=== PATIENT | female | born 2000 | race Caucasian/White ===

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

== ENCOUNTER → 2020-09-26 | Outpatient (CLI) | payer SELFPAY | LOC: M LABSMTC 09:42 | PROVIDERS: ATTEND Pediatrics | DX: Z20.822 Contact with and (suspected) exposure to COVID-19 (principal) ==

== ENCOUNTER → 2020-10-14 | Outpatient (CLI) | payer OTHER ==
[2020-10-14 15:14] LABS: BASO % 0.2 % (0.0-1.0); EOS % 0.5 % (0.0-3.0); HEMATOCRIT 42.6 % (36.0-47.0); HEMOGLOBIN 13.5 g/dl (12.0-15.5); LYMPH # 2.1 10^3/uL (1.5-5.0); LYMPH % 24.3 % (24.0-44.0); MEAN CORPUSCULAR HEMOGLOBIN 26.1 pg (27.0-33.0); MEAN CORPUSCULAR HGB CONC 31.7 g/dl (32.0-36.5); MEAN CORPUSCULAR VOLUME 82.4 fl (80.0-96.0); MONO # 0.6 10^3/uL (0.0-0.8); MONO % 6.6 % (0.0-5.0); NEUTROPHILS # 5.8 10^3/uL (1.5-8.5); NEUTROPHILS % 68.2 % (36.0-66.0); PLATELET COUNT, AUTOMATED 126 10^3/uL (150-450); RED BLOOD COUNT 5.17 10^6/uL (4.00-5.40); WHITE BLOOD COUNT 8.5 10^3/uL (4.0-10.0)
[2020-10-14 15:49] LABS: ALBUMIN 4.2 GM/DL (3.2-5.2); ALT/SGPT 25 U/L (12-78); BILIRUBIN,TOTAL 1.3 MG/DL (0.2-1.0); BLOOD UREA NITROGEN 17 MG/DL (7-18); CALCIUM LEVEL 9.6 MG/DL (8.5-10.1); CARBON DIOXIDE LEVEL 29 MEQ/L (21-32); CHLORIDE LEVEL 105 MEQ/L (98-107); FREE T4 0.96 NG/DL (0.78-1.33); GLUCOSE, FASTING 87 MG/DL (70-100); POTASSIUM SERUM 4.1 MEQ/L (3.5-5.1); SODIUM LEVEL 141 MEQ/L (136-145); THYROID STIMULATING HORMONE 0.875 uIU/ML (0.463-3.98); TOTAL PROTEIN 7.3 GM/DL (6.4-8.2)
== END ==
LOC: M LAB 14:31
PROVIDERS: ATTEND Pediatrics
DX: F43.23 Adjustment disorder with mixed anxiety and depressed mood (principal)

== ENCOUNTER → 2020-12-15 | Outpatient (CLI) | payer OTHER | LOC: M LABSMTC 09:51 | PROVIDERS: ATTEND Pediatrics | DX: Z20.822 Contact with and (suspected) exposure to COVID-19 (principal) ==

== ENCOUNTER → 2020-12-15 | Outpatient (REF) | payer OTHER ==
[2020-12-15 14:28] LABS: CHLAMYDIA DNA AMPLIFICATION POSITIVE (NEGATIVE); GC DNA AMPLIFICATION NEGATIVE (NEGATIVE)
== END ==
LOC: M WUC 12:19
PROVIDERS: ATTEND Physician Assistant
DX: R30.0 Dysuria (principal)

== ENCOUNTER → 2021-01-04 | Outpatient (REF) | payer OTHER | LOC: M LAB REF 15:43 | PROVIDERS: ATTEND Physician Assistant | DX: N93.9 Abnormal uterine and vaginal bleeding, unspecified (principal); B37.3 Candidiasis of vulva and vagina; Z20.828 Contact with and (suspected) exposure to other viral communicable diseases ==

== ENCOUNTER → 2021-03-02 | Outpatient (REF) | payer OTHER | LOC: M LAB REF 16:31 | PROVIDERS: ATTEND Advanced Practice Midwife | DX: R30.0 Dysuria (principal) ==

== ENCOUNTER 2021-03-13 17:50 | Emergency (ER) | payer OTHER ==
[~2021-03-13] VITALS: Ht 170.2 cm; Wt 72.5 kg
[2021-03-13] MEDS ORDERED: CEPH25SS PO (18:08)
[2021-03-13] MEDS ORDERED: PYRI1TAB5 PO ×2 (18:08→22:55)
[2021-03-13 19:13] LABS: BASO % 0.3 % (0.0-1.0); EOS # 0.1 10^3/uL (0.0-0.5); EOS % 1.6 % (0.0-3.0); GLUCOSE, URINE (UA) MANUAL NEGATIVE (NEGATIVE); HEMATOCRIT 41.8 % (36.0-47.0); KETONE, URINE MANUAL NEGATIVE (NEGATIVE); LYMPH # 3.4 10^3/uL (1.5-5.0); LYMPH % 43.6 % (24.0-44.0); MEAN CORPUSCULAR HGB CONC 31.1 g/dl (32.0-36.5); MEAN CORPUSCULAR VOLUME 83.6 fl (80.0-96.0); MONO # 0.7 10^3/uL (0.0-0.8); MONO % 8.6 % (2.0-8.0); NEUTROPHILS # 3.5 10^3/uL (1.5-8.5); NEUTROPHILS % 45.4 % (36.0-66.0); PLATELET COUNT, AUTOMATED 145 10^3/uL (150-450); WHITE BLOOD COUNT 7.7 10^3/uL (4.0-10.0)
[2021-03-13 19:14] LABS: BILIRUBIN, URINE MANUAL OBSCURED (NEGATIVE); UROBILINOGEN, URINE MANUAL OBSCURED mg/dl (NORMAL)
[2021-03-13 19:24] LABS: BACTERIA, URINE SMALL AMOUNT; RBC, URINE NONE SEEN /hpf (0-3); SQUAMOUS EPITHELIAL CELL URINE SMALL AMOUNT /hpf (SMALL AMT)
[2021-03-13 19:25] LABS: HYALINE CAST, URINE NONE SEEN /lpf (0-1); MUCUS, URINE SMALL AMOUNT (NEGATIVE)
[2021-03-13 19:43] LABS: HCG, SERUM QUALITATIVE NEGATIVE (NEGATIVE)
[2021-03-13 19:44] LABS: ALBUMIN 4.1 GM/DL (3.2-5.2); ALT/SGPT 16 U/L (12-78); BILIRUBIN,DIRECT 0.3 MG/DL (0.0-0.2); BILIRUBIN,TOTAL 1.2 MG/DL (0.2-1.0); BLOOD UREA NITROGEN 15 MG/DL (7-18); CARBON DIOXIDE LEVEL 28 MEQ/L (21-32); CHLORIDE LEVEL 110 MEQ/L (98-107); CREATININE FOR GFR 0.73 MG/DL (0.55-1.30); GLUCOSE, FASTING 76 MG/DL (70-100); LIPASE 86 U/L (73-393); POTASSIUM SERUM 3.8 MEQ/L (3.5-5.1); SODIUM LEVEL 142 MEQ/L (136-145); TOTAL PROTEIN 7.2 GM/DL (6.4-8.2)
--- NOTE | 2021-03-13 22:18 | REPVR ---
PROCEDURE INFORMATION: Exam: US Retroperitoneal Limited, Kidneys Exam date and time: 03/13/2021 9:43 PM Age: 20 years old Clinical indication: Abdominal pain; Flank; Left; Additional info: Left flank pain, dysuria, hematuria, polyuria, abx no help TECHNIQUE: Imaging protocol: Real-time ultrasound of the retroperitoneum with image documentation. Examination was focused on the kidneys. COMPARISON: ABD COMPLETE US 09/08/2017 8:26 AM FINDINGS: Right kidney: Right kidney measures 11.6 cm in length. Renal parenchymal echotexture and cortical thickness are normal. No solid renal mass, cyst or hydronephrosis. No shadowing, echogenic renal foci suggestive of stones. Left kidney: Left kidney measures 10.2 cm in length. No solid left renal mass, cyst or hydronephrosis. No shadowing stones Bladder: Bladder is unremarkable. Right-sided ureter jets documented with Doppler IMPRESSION: Unremarkable ultrasound of the kidneys and bladder. Electronically signed by: Jamal Ruggiero On 03/13/2021 22:18:19 PM
[2021-03-13 22:29] LABS: CHLAMYDIA DNA AMPLIFICATION NEGATIVE (NEGATIVE); GC DNA AMPLIFICATION NEGATIVE (NEGATIVE)
[2021-03-13] MEDS ORDERED: CEPH500C PO (22:55)
[2021-03-13] MEDS ORDERED: PHENAZOPYRIDINE 100 MG TAB PO ONE (22:55)
[2021-03-13] MEDS ORDERED: CEPHALEXIN 500 MG CAP PO ONE (22:55)
[2021-03-13 22:59] VITALS: BP 157/73
== END 2021-03-13 23:04 | disposition home or self-care (01) ==
LOC: M ED 17:50
DX: R30.0 Dysuria (principal); N39.0 Urinary tract infection, site not specified; F17.200 Nicotine dependence, unspecified, uncomplicated; Z88.6 Allergy status to analgesic agent